=== PATIENT | female | born 1965 | race African-American/Black ===

== ENCOUNTER 2017-06-12 16:49 | Emergency (ER) | payer OTHER ==
[~2017-06-12] VITALS: Ht 165.1 cm; Wt 100.0 kg
[~2017-06-12 16:49] MED LIST: ADVAIR DISK1 INH; ADVAIR DISK2 IN; ATIVAN0.5 MG PO; BACTRIM DS1 TAB PO; BENADRY2 EX; BENADRYL 50MG C50 MG OR; BENADRYL 50MG C50 MG PO; BENAZEPRIL10 MG PO; CEPHALEXIN500 M1 PO; CIPRO500 MG OR; FLEXERIL OR; GLYBURID MCR3 MG PO; GLYNASE6 MG; HUMALOG MIX 75/25; HYDROCHLOROT25 MG PO; HYZAAR1 TA1 OR; LORTAB 5 OR; LOTENSIN HCT1 TAB; MEDDOSEPAK OR; METFORMIN500 M2 OR; METFORMIN500 MG PO; NAPROXEN250 MG PO; NIFEDIPINE30 MG PO; NO MEDS; NORCO1 TA1 PO; PRAVASTATIN20 MG PO; PREDNISONE20 MG PO; PROVENTIL HFA IN; PROVENTIL INH17 GM IN; PROVENTIL0.083 % IN; SIMVASTATIN40 MG; TAGAMET300 MG OR; ULTRAM50 MG OR; ZOFRAN4 MG/TAB PO; ZPAK OR
[2017-06-12 17:56] LABS: HEMATOCRIT 33.1 % (37.0-47.0); HEMOGLOBIN 10.8 g/dl (12.0-16.0); IMMATURE GRANULOCYTES 0.2 % (0.0-1.0); MEAN CELL VOLUME 90.2 fL CALC (80.0-100.0); MEAN CORPUSCULAR HGB 29.4 pG CALC (26.0-32.0); MEAN CORPUSCULAR HGB CONC 32.6 g/L CALC (32.0-36.0); NEUT# 6.71 thou/uL (2.00-7.15); RED BLOOD COUNT 3.67 mill/uL (4.20-5.60); RED CELL DISTRI WIDTH 13.5 % (11.5-15.5)
[2017-06-12 18:05] LABS: ALBUMIN 4.2 g/dL (3.2-5.0); ALKALINE PHOSPHATASE 72 u/l (38-126); ANION GAP 16 (6-22 (CALC)); BILIRUBIN, TOTAL 0.5 mg/dL (0.0-1.4); BUN 15 mg/dL (7-17); BUN/CREATININE RATIO 19 (12-20 (CALC)); CALCIUM 9.4 mg/dL (8.4-10.2); CARBON DIOXIDE 27 mmol/l (22-30); CHLORIDE 102 mmol/l (95-108); CREATININE 0.8 mg/dL (0.5-1.0); GFR > 60 ML/MIN (>=60 (CALC)); GFR FOR AFR.AMER. > 60 ML/MIN (>=60 (CALC)); GLUCOSE 127 mg/dL (65-105); POTASSIUM 3.5 mmol/l (3.5-5.1); SGOT/AST 16 u/l (14-36); SGPT/ALT 23 u/l (9-52); SODIUM 141 mmol/l (137-146); TOTAL PROTEIN 7.8 g/dL (6.3-8.2)
[2017-06-12 18:18] LABS: MYOGLOBIN 51 ng/mL (0 - 62)
[2017-06-12] MEDS ORDERED: MEDDOSEPAK PO (18:29)
[2017-06-12] MEDS ORDERED: ZITHROMAX250 MG PO (18:29)
[2017-06-12 18:43] VITALS: BP 123/69
== END 2017-06-12 18:59 | disposition home or self-care (01) | DRG 203 ==
LOC: ED 16:49
PROVIDERS: Emergency Medicine
DX: J45.909 Unspecified asthma, uncomplicated (principal); R06.02 Shortness of breath; R05 Cough

== ENCOUNTER 2017-07-14 08:12 | Observation (INO) | payer OTHER ==
[~2017-07-14] VITALS: Ht 165.1 cm; Wt 99.5 kg
[~2017-07-14 08:12] MED LIST changes: +MEDDOSEPAK PO; +ZITHROMAX250 MG PO
--- NOTE | 2017-07-14 08:13 | NUR ---
PATIENT BROUGHT DIRECTLY TO ROOM 13 VIA WHEELCHAIR.
[2017-07-14 08:42] LABS: HEMATOCRIT 32.8 % (37.0-47.0); IMMATURE GRANULOCYTES 0.4 % (0.0-1.0); MEAN CELL VOLUME 90.6 fL CALC (80.0-100.0); MEAN CORPUSCULAR HGB 30.4 pG CALC (26.0-32.0); MEAN CORPUSCULAR HGB CONC 33.5 g/L CALC (32.0-36.0); NEUT# 7.75 thou/uL (2.00-7.15); RED BLOOD COUNT 3.62 mill/uL (4.20-5.60); RED CELL DISTRI WIDTH 13.2 % (11.5-15.5)
--- NOTE | 2017-07-14 08:52 | NUR ---
RT AT BEDSIDE FOR BREATHING TREATMENT.
--- NOTE | 2017-07-14 09:00 | NUR ---
PATIENT REPORT CHEST PAIN 9/10 ON PAIN SCALE AFTER BEING MEDICATED WITH SL NITRO 0.4 MG. O2 APPLIED. MD INFORMED, AWAITING NEW ORDERS.
[2017-07-14 09:03] LABS: CHOLESTEROL HDL RATIO 3.1 (<4.4 (CALC))
[2017-07-14 09:04] LABS: ANION GAP 14 (6-22 (CALC)); BUN 12 mg/dL (7-17); BUN/CREATININE RATIO 16 (12-20 (CALC)); CALCIUM 9.7 mg/dL (8.4-10.2); CARBON DIOXIDE 25 mmol/l (22-30); CHLORIDE 104 mmol/l (95-108); CREATININE 0.8 mg/dL (0.5-1.0); GFR > 60 ML/MIN (>=60 (CALC)); GFR FOR AFR.AMER. > 60 ML/MIN (>=60 (CALC)); GLUCOSE 153 mg/dL (65-105); POTASSIUM 3.9 mmol/l (3.5-5.1); SODIUM 139 mmol/l (137-146)
--- NOTE | 2017-07-14 09:16 | NUR ---
PATIENT MEDICATED WITH 4MG OF MORPHINE IVP AND 4 MG OF ZOFRAN IVP FOR 6/10 STABBING PAIN TO THE MIDSTERNAL CHEST AREA. PATIENT DENIES ANY OTHER NEEDS AT THIS TIME. CALL MARTINEZ WITHIN REACH.
--- NOTE | 2017-07-14 09:28 | NUR ---
MD AT BEDSIDE TO DISCUSS RESULTS.
--- NOTE | 2017-07-14 09:29 | NUR ---
SBAR PRINTED TO FLOOR
--- NOTE | 2017-07-14 09:35 | NUR ---
PATIENT REPORTS PAIN LEVEL 6/10. NOS SIGN OF DISTRESS NOTED. CALL LIGHT IN HAND WILL CONTINUE TO MONITOR.
--- NOTE | 2017-07-14 09:38 | NUR ---
ATTEMPT MADE TO CALL REPORT TO SIMONE. WILL CALL BACK FOR REPORT.
--- NOTE | 2017-07-14 10:00 | NUR ---
REPORT GIVEN TO TICO NICHOLS.
--- NOTE | 2017-07-14 10:09 | NUR ---
PT ARRIVED TO ROOM AT 1009 FROM ER WITH CHARU BILLINGSLEY. PT AMBULATED TO BED. PT ORIENTED TO ROOM AND CALL LIGHT SYSTEM. PT HAS NO COMPLAINTS OF PAIN AT THIS TIME. NO SIGNS OF DISTRESS NOTED. SAFETY PRECAUTIONS REINFORCED. CALL LIGHT WITHIN REACH. WILL CONTINUE TO MONITOR.
--- NOTE | 2017-07-14 10:20 | NUR ---
PT TAKEN TO ROOM 272 WITHOUT INCIDENT.
[2017-07-14 11:01] VITALS: BP 129/82
--- NOTE | 2017-07-14 14:09 | NUR ---
PT RESTING IN BED WATCHING TV. NO ACUTE SIGNS OF DISTRESS NOTED. TELE IN PLACE. IV PATENT. WILL CONTINUE TO MONITOR. CALL LIGHT WITHIN REACH
[2017-07-14 15:23] VITALS: BP 123/74
[2017-07-14 19:00] VITALS: BP 110/63
--- NOTE | 2017-07-14 19:29 | NUR ---
REPORT GIVEN TO TICO RUDD. NO ACUTE CHANGES IN PT CONDITION AT THIS TIME. PT RESTING IN BED WATCHING TV. TELE IN PLACE. O2 ON. IV PATENT. CALL LIGHT IN WITHIN REACH.
--- NOTE | 2017-07-14 20:00 | NUR ---
PT IN BED WATCHING TV, RESPIRAITONS EVEN AND UNLABORED ON O2 @2L VIA NC, O2 SAT 96%. DENIES CHEST PAIN, TELE IN PLACE READING SR 84, PT IS MUTE AND DEAF, WE COMMUNICATE BY WRITTING. ENCOURAGED TO USE CALL LIGHT FOR ASSISTANCE, WILL CONTINUE TO MONITOR.
[2017-07-15] VITALS: BP 118/60
--- NOTE | 2017-07-15 00:41 | NUR ---
C/O MIDSTERNAL PAIN 4/10 MEDICATED WITH TYLENOL 650MG PO.
--- NOTE | 2017-07-15 04:00 | NUR ---
OOB TO BATHROOM WITH STEADY GAIT, DENIES CHEST PAIN.
[2017-07-15 04:31] VITALS: BP 106/50
[2017-07-15 06:22] LABS: CHOLESTEROL HDL RATIO 3.4 (<4.4 (CALC))
[2017-07-15 08:10] VITALS: BP 124/69
--- NOTE | 2017-07-15 08:10 | NUR ---
ASSESSMENT IS COMPLETED: IV SITE IS FREE FROM REDNESS OR EDEMA. TELE MONITOR IN PLACE. CONTINUE TO OBSERVE AND MONITOR.
[2017-07-15 11:10] VITALS: BP 122/77
--- NOTE | 2017-07-15 12:00 | NUR ---
PT IS RELAXING IN BED HAS BEEN VISITING WITH FAMILY. IV SITE IS FREE FROM REDNESS OR EDEMA.
[2017-07-15] MEDS ORDERED: IPRATROPIU0.5 MG/3 M NEB (13:36)
[2017-07-15] MEDS ORDERED: MEDDOSEPAK PO (13:36)
[2017-07-15] MEDS ORDERED: NEBULIZER COMPRESSOR IN (13:36)
[2017-07-15] MEDS ORDERED: ASPIRIN CHEWABL81 MG PO (13:36)
--- NOTE | 2017-07-15 15:50 | NUR ---
SPOKE WITH HER DAUGHTER RE: DISCHARGE. PT TOLD FAMILY "SHE IS STILL HURTING" INFORMED FAMILY HER ASTHMA HAS ACTED UP AND WITH COUGHING IT HURTS THE MUSCLE. HAS PUT HER ON MEDICATION TO HELP WITH THIS. VERBALIZED UNDERSTANDING. ALSO SIGNED TO THE PT. RE: CONVERSATION WITH DAUGHTER.
--- NOTE | 2017-07-15 17:09 | NUR ---
PT AMBULATED OFF THE UNIT WITH FAMILY NO DISTRESS NOTED. IV SITE AND TELE DISCONTINUED CATHETER INTACT. CONTINUE TO OSBERVE AND MONITOR.
== END 2017-07-15 17:00 | disposition home or self-care (01) | DRG 313 ==
LOC: ED 08:12 → ED-I 09:23 → ED 09:49 → MS2 09:50
PROVIDERS: Family Medicine; ADMIT Internal Medicine; ATTEND Internal Medicine
DX: R07.89 Other chest pain (principal); J45.901 Unspecified asthma with (acute) exacerbation; I10 Essential (primary) hypertension; E11.9 Type 2 diabetes mellitus without complications; E78.5 Hyperlipidemia, unspecified; H91.90 Unspecified hearing loss, unspecified ear; Z79.84 Long term (current) use of oral hypoglycemic drugs
CPT/HCPCS: G0378

== ENCOUNTER 2017-09-16 09:10 | Emergency (ER) | payer OTHER ==
[~2017-09-16] VITALS: Ht 165.1 cm; Wt 96.0 kg
[~2017-09-16 09:10] MED LIST changes: +ASPIRIN CHEWABL81 MG PO; +IPRATROPIU0.5 MG/3 M NEB; +NEBULIZER COMPRESSOR IN
[2017-09-16] MEDS ORDERED: PRAVASTATIN80 MG PO (09:35)
[2017-09-16] MEDS ORDERED: AMLODIPINE BESYL5 MG PO (09:35)
[2017-09-16] MEDS ORDERED: ADVAIR DISKU IN (09:36)
[2017-09-16] MEDS ORDERED: PROVENTIL108 MCG/AC IN (09:36)
[2017-09-16] MEDS ORDERED: MAXZIDE-2537.5 MG/TA PO (09:37)
[2017-09-16] MEDS ORDERED: LEVOTHYROXIN50 MCG PO (09:37)
[2017-09-16] MEDS ORDERED: LOSARTAN POT100 MG PO (09:38)
[2017-09-16] MEDS ORDERED: ASPIRIN CHEWABL81 MG PO (09:39)
[2017-09-16] MEDS ORDERED: NAPROSYN500 MG PO (09:59)
[2017-09-16] MEDS ORDERED: FLEXERIL PO (09:59)
[2017-09-16 10:01] VITALS: BP 119/73
== END 2017-09-16 10:01 | disposition home or self-care (01) | DRG 556 ==
LOC: ED 09:10
DX: M62.838 Other muscle spasm (principal); M54.2 Cervicalgia

== ENCOUNTER → 2018-03-12 | Day surgery (SDC) | payer OTHER ==
[~2018-03-12] VITALS: Ht 167.6 cm; Wt 98.9 kg
[~2018-03-12] MED LIST changes: +ADVAIR DISKU IN; +AMLODIPINE BESYL5 MG PO; +CYCLOBENZAPRINE10 MG PO; +FLEXERIL PO; +LEVOTHYROXIN50 MCG PO; +LOSARTAN POT100 MG PO; +MAXZIDE-2537.5 MG/TA PO; +MELOXICAM7.5 MG PO; +NAPROSYN500 MG PO; +PRAVASTATIN80 MG PO; +PREDNISONE10 MG PO; +PROVENTIL108 MCG/AC IN
[2018-03-12 09:33] VITALS: BP 139/89
== END | disposition home or self-care (01) ==
LOC: ENDO 02-26 09:40
PROVIDERS: ATTEND Surgery
DX: Z12.11 Encounter for screening for malignant neoplasm of colon (principal); E11.9 Type 2 diabetes mellitus without complications; E78.5 Hyperlipidemia, unspecified; I10 Essential (primary) hypertension; J45.909 Unspecified asthma, uncomplicated

== ENCOUNTER 2018-03-14 13:30 | Emergency (ER) | payer OTHER ==
[~2018-03-14] VITALS: Ht 167.6 cm; Wt 85.0 kg
[~2018-03-14 13:30] MED LIST changes: -PREDNISONE10 MG PO
[2018-03-14] MEDS ORDERED: LEVOTHYROXIN50 MCG PO (14:08)
[2018-03-14 14:16] LABS: HEMATOCRIT 33.6 % (37.0-47.0); HEMOGLOBIN 11.1 g/dl (12.0-16.0); IMMATURE GRANULOCYTES 0.3 % (0.0-5.0); MEAN CELL VOLUME 91.6 fL CALC (80.0-100.0); MEAN CORPUSCULAR HGB 30.2 pG CALC (26.0-32.0); NEUT# 4.24 thou/uL (2.00-7.15); RED BLOOD COUNT 3.67 mill/uL (4.20-5.60)
[2018-03-14 14:33] LABS: ALBUMIN 3.9 g/dL (3.2-5.0); ALKALINE PHOSPHATASE 73 u/l (38-126); ANION GAP 13 (6-22 (CALC)); BILIRUBIN, TOTAL 0.4 mg/dL (0.0-1.4); BUN 16 mg/dL (7-17); BUN/CREATININE RATIO 20 (12-20 (CALC)); CARBON DIOXIDE 28 mmol/l (22-30); CHLORIDE 107 mmol/l (95-108); CREATININE 0.8 mg/dL (0.5-1.0); GFR > 60 ML/MIN (>=60 (CALC)); GFR FOR AFR.AMER. > 60 ML/MIN (>=60 (CALC)); POTASSIUM 3.7 mmol/l (3.5-5.1); SGOT/AST 12 u/l (14-36); SGPT/ALT 24 u/l (9-52); SODIUM 144 mmol/l (137-146); TOTAL PROTEIN 7.7 g/dL (6.3-8.2)
[2018-03-14 14:45] LABS: MYOGLOBIN 39 ng/mL (0 - 62)
[2018-03-14] MEDS ORDERED: PREDNISONE10 MG PO (14:59)
[2018-03-14 15:24] VITALS: BP 148/65
== END 2018-03-14 15:24 | disposition home or self-care (01) ==
LOC: ED 13:30
PROVIDERS: Family Medicine
DX: J45.901 Unspecified asthma with (acute) exacerbation (principal); R06.02 Shortness of breath; R05 Cough; R07.9 Chest pain, unspecified; I10 Essential (primary) hypertension

== ENCOUNTER 2018-05-08 16:17 | Emergency (ER) | payer OTHER ==
[~2018-05-08] VITALS: Ht 167.6 cm; Wt 90.4 kg
[~2018-05-08 16:17] MED LIST changes: +PREDNISONE10 MG PO
[2018-05-08 17:04] LABS: HEMATOCRIT 35.2 % (37.0-47.0); HEMOGLOBIN 11.6 g/dl (12.0-16.0); IMMATURE GRANULOCYTES 0.2 % (0.0-5.0); MEAN CELL VOLUME 89.8 fL CALC (80.0-100.0); MEAN CORPUSCULAR HGB 29.6 pG CALC (26.0-32.0); NEUT# 5.02 thou/uL (2.00-7.15); RED BLOOD COUNT 3.92 mill/uL (4.20-5.60); RED CELL DISTRI WIDTH 12.3 % (11.5-15.5)
[2018-05-08 17:07] LABS: URINE BILIRUBIN - DIPSTICK NEGATIVE (NEGATIVE); URINE BLOOD DIPSTICK NEGATIVE (NEGATIVE); URINE COLOR YELLOW; URINE GLUCOSE - DIPSTICK NEGATIVE (NEGATIVE); URINE KETONE NEGATIVE (NEGATIVE); URINE LEUK ESTERASE NEGATIVE (NEGATIVE); URINE NITRITE - DIPSTICK NEGATIVE (Negative); URINE PROTEIN - DIPSTICK NEGATIVE (NEG-TRACE)
[2018-05-08 17:08] LABS: URINE CLARITY CLEAR
[2018-05-08 17:22] LABS: ALBUMIN 3.9 g/dL (3.2-5.0); ALKALINE PHOSPHATASE 71 u/l (38-126); ANION GAP 15 (6-22 (CALC)); BILIRUBIN, TOTAL 0.4 mg/dL (0.0-1.4); BUN 14 mg/dL (7-17); BUN/CREATININE RATIO 22 (12-20 (CALC)); CARBON DIOXIDE 25 mmol/l (22-30); CHLORIDE 104 mmol/l (95-108); CREATININE 0.6 mg/dL (0.5-1.0); GFR > 60 ML/MIN (>=60 (CALC)); GFR FOR AFR.AMER. > 60 ML/MIN (>=60 (CALC)); LIPASE 67 u/l (23-300); POTASSIUM 4.2 mmol/l (3.5-5.1); SGOT/AST 11 u/l (14-36); SGPT/ALT 17 u/l (9-52); SODIUM 140 mmol/l (137-146); TOTAL PROTEIN 7.3 g/dL (6.3-8.2)
[2018-05-08 18:23] VITALS: BP 159/90
== END 2018-05-08 18:30 | disposition home or self-care (01) ==
LOC: ED 16:17
DX: R10.32 Left lower quadrant pain (principal); I10 Essential (primary) hypertension; E11.9 Type 2 diabetes mellitus without complications; J45.909 Unspecified asthma, uncomplicated
CPT/HCPCS: Q9967

== ENCOUNTER 2018-07-31 17:45 | Emergency (ER) | payer OTHER ==
[~2018-07-31] VITALS: Ht 167.6 cm; Wt 89.1 kg
[2018-07-31] MEDS ORDERED: PROVENTIL108 MCG/AC IN (18:18)
[2018-07-31] MEDS ORDERED: MEDDOSEPAK PO (18:18)
[2018-07-31 18:31] VITALS: BP 186/96
== END 2018-07-31 19:00 | disposition home or self-care (01) ==
LOC: ED 17:45
DX: J45.909 Unspecified asthma, uncomplicated (principal); H91.90 Unspecified hearing loss, unspecified ear; I10 Essential (primary) hypertension; E11.9 Type 2 diabetes mellitus without complications; R06.02 Shortness of breath

== ENCOUNTER 2018-09-29 18:39 | Emergency (ER) | payer OTHER ==
[~2018-09-29] VITALS: Ht 167.6 cm; Wt 86.3 kg
[2018-09-29] MEDS ORDERED: PROVENTIL HFA IN ×2 (19:50→19:51)
[2018-09-29 19:53] VITALS: BP 149/73
== END 2018-09-29 20:05 | disposition home or self-care (01) ==
LOC: ED 18:39
DX: J45.909 Unspecified asthma, uncomplicated (principal); I10 Essential (primary) hypertension; E11.9 Type 2 diabetes mellitus without complications; R06.02 Shortness of breath

== ENCOUNTER 2018-10-25 07:27 | Emergency (ER) | payer OTHER ==
[~2018-10-25] VITALS: Ht 167.6 cm; Wt 85.0 kg
[2018-10-25 08:38] LABS: HEMATOCRIT 34.5 % (37.0-47.0); HEMOGLOBIN 11.3 g/dl (12.0-16.0); IMMATURE GRANULOCYTES 0.2 % (0.0-5.0); MEAN CORPUSCULAR HGB 27.6 pG CALC (26.0-32.0); MEAN CORPUSCULAR HGB CONC 32.8 g/L CALC (32.0-36.0); NEUT# 3.16 thou/uL (2.00-7.15); RED BLOOD COUNT 4.09 mill/uL (4.20-5.60); RED CELL DISTRI WIDTH 12.9 % (11.5-15.5)
[2018-10-25 08:42] LABS: MEAN CELL VOLUME 84.4 fL CALC (80.0-100.0)
[2018-10-25] MEDS ORDERED: METOPROL TAR25 MG PO (08:45)
[2018-10-25] MEDS ORDERED: AMLODIPINE5 MG PO (08:45)
[2018-10-25] MEDS ORDERED: LOSARTAN POTASS50 MG PO (08:46)
[2018-10-25 09:18] LABS: URINE BILIRUBIN - DIPSTICK NEGATIVE (NEGATIVE); URINE BLOOD DIPSTICK NEGATIVE (NEGATIVE); URINE COLOR YELLOW; URINE GLUCOSE - DIPSTICK NEGATIVE (NEGATIVE); URINE KETONE NEGATIVE (NEGATIVE); URINE LEUK ESTERASE NEGATIVE (NEGATIVE); URINE NITRITE - DIPSTICK NEGATIVE (Negative); URINE PROTEIN - DIPSTICK NEGATIVE (NEG-TRACE); URINE UROBILINOGEN - DIPSTICK 0.2 E.U./dL (0.2)
[2018-10-25 09:21] LABS: BARBITURATES NEGATIVE (NEGATIVE); COCAINE NEGATIVE (NEGATIVE); METHADONE NEGATIVE (NEGATIVE); OXCYCODONE NEGATIVE (NEGATIVE); TETRAHYDROCANNABIONOL NEGATIVE (NEGATIVE); TRICYLIC ANTIDEPRESSANTS NEGATIVE (NEGATIVE)
[2018-10-25 09:28] LABS: ALBUMIN 3.8 g/dL (3.2-5.0); ALKALINE PHOSPHATASE 105 u/l (38-126); ANION GAP 14 (6-22 (CALC)); BILIRUBIN, TOTAL 0.9 mg/dL (0.0-1.4); BUN 9 mg/dL (7-17); BUN/CREATININE RATIO 19 (12-20 (CALC)); CARBON DIOXIDE 25 mmol/l (22-30); CHLORIDE 104 mmol/l (95-108); CREATININE 0.5 mg/dL (0.5-1.0); GFR > 60 ML/MIN (>=60 (CALC)); GFR FOR AFR.AMER. > 60 ML/MIN (>=60 (CALC)); POTASSIUM 3.8 mmol/l (3.5-5.1); SGOT/AST 11 u/l (14-36); SODIUM 140 mmol/l (137-146); TOTAL PROTEIN 7.2 g/dL (6.3-8.2)
[2018-10-25] MEDS ORDERED: ULTRAM50 M1 PO (11:04)
[2018-10-25 11:18] VITALS: BP 175/80
== END 2018-10-25 11:19 | disposition home or self-care (01) ==
LOC: ED 07:27
PROVIDERS: Emergency Medicine
DX: E05.90 Thyrotoxicosis, unspecified without thyrotoxic crisis or storm (principal); N81.4 Uterovaginal prolapse, unspecified; I10 Essential (primary) hypertension; E11.9 Type 2 diabetes mellitus without complications; H91.3 Deaf nonspeaking, not elsewhere classified; M54.2 Cervicalgia; R00.2 Palpitations

== ENCOUNTER 2018-12-14 12:37 | Emergency (ER) | payer OTHER ==
[~2018-12-14] VITALS: Ht 167.6 cm; Wt 81.8 kg
[~2018-12-14 12:37] MED LIST changes: +AMLODIPINE5 MG PO; +LOSARTAN POTASS50 MG PO; +METOPROL TAR25 MG PO; +ULTRAM50 M1 PO
[2018-12-14 14:34] VITALS: BP 148/82
== END 2018-12-14 14:34 | disposition home or self-care (01) ==
LOC: ED 12:37
DX: S80.211A Abrasion, right knee, initial encounter (principal); H91.90 Unspecified hearing loss, unspecified ear; W01.0XXA Fall on same level from slipping, tripping and stumbling without subsequent striking against object, initial encounter; Y92.524 Gas station as the place of occurrence of the external cause

== ENCOUNTER 2019-05-06 22:07 | Emergency (ER) | payer OTHER ==
[~2019-05-06] VITALS: Ht 167.6 cm; Wt 85.9 kg
[2019-05-06 22:30] LABS: HEMOGLOBIN 11.3 g/dl (12.0-16.0); IMMATURE GRANULOCYTES 0.4 % (0.0-5.0); MEAN CELL VOLUME 86.3 fL CALC (80.0-100.0); MEAN CORPUSCULAR HGB 28.7 pG CALC (26.0-32.0); MEAN CORPUSCULAR HGB CONC 33.2 g/L CALC (32.0-36.0); NEUT# 4.92 thou/uL (2.00-7.15); RED BLOOD COUNT 3.94 mill/uL (4.20-5.60); RED CELL DISTRI WIDTH 12.4 % (11.5-15.5)
--- NOTE | 2019-05-06 22:34 | NUR ---
BREATHING TREATMENT GIVEN.
[2019-05-06 22:50] LABS: ALKALINE PHOSPHATASE 146 u/l (38-126); ANION GAP 15 (6-22 (CALC)); BUN 9 mg/dL (7-17); BUN/CREATININE RATIO 14 (12-20 (CALC)); CARBON DIOXIDE 28 mmol/l (22-30); CHLORIDE 103 mmol/l (95-108); CREATININE 0.6 mg/dL (0.5-1.0); GFR > 60 ML/MIN (>=60 (CALC)); GFR FOR AFR.AMER. > 60 ML/MIN (>=60 (CALC)); POTASSIUM 3.4 mmol/l (3.5-5.1); SODIUM 142 mmol/l (137-146); TOTAL PROTEIN 8.2 g/dL (6.3-8.2)
[2019-05-06 22:55] LABS: BILIRUBIN, TOTAL 0.4 mg/dL (0.0-1.4); SGOT/AST 25 u/l (14-36)
[2019-05-06 23:01] LABS: MYOGLOBIN 71 ng/mL (0 - 62)
[2019-05-06 23:30] LABS: URINE BILIRUBIN - DIPSTICK NEGATIVE (NEGATIVE); URINE BLOOD DIPSTICK NEGATIVE (NEGATIVE); URINE COLOR YELLOW; URINE GLUCOSE - DIPSTICK NEGATIVE (NEGATIVE); URINE KETONE NEGATIVE (NEGATIVE); URINE LEUK ESTERASE NEGATIVE (NEGATIVE); URINE NITRITE - DIPSTICK NEGATIVE (Negative); URINE PROTEIN - DIPSTICK TRACE mg/dL (NEG-TRACE); URINE SPECIFIC GRAVITY 1.025
[2019-05-06] MEDS ORDERED: ROBITUSSIN AC10 ML PO (23:43)
[2019-05-06] MEDS ORDERED: AMOXICILLIN500 MG PO (23:43)
[2019-05-06 23:53] VITALS: BP 173/77
== END 2019-05-07 00:09 | disposition home or self-care (01) ==
LOC: ED 22:07
PROVIDERS: Emergency Medicine
DX: J02.0 Streptococcal pharyngitis (principal); I10 Essential (primary) hypertension; J44.9 Chronic obstructive pulmonary disease, unspecified; E11.9 Type 2 diabetes mellitus without complications; Z79.84 Long term (current) use of oral hypoglycemic drugs

== ENCOUNTER 2019-05-25 13:27 | Emergency (ER) | payer OTHER ==
[~2019-05-25] VITALS: Ht 167.6 cm; Wt 89.0 kg
[~2019-05-25 13:27] MED LIST changes: +ADVAIR DISK1 IN; -ADVAIR DISKU IN; +AMOXICILLIN500 MG PO; +COZAAR100 MG PO; -LOSARTAN POTASS50 MG PO; +ROBITUSSIN AC10 ML PO
[2019-05-25] MEDS ORDERED: TERBINAFINE250 M1 PO (14:07)
[2019-05-25] MEDS ORDERED: PRAVASTATIN SOD80 MG PO (14:07)
[2019-05-25] MEDS ORDERED: AMLODIPINE BESY10 MG PO (14:08)
[2019-05-25] MEDS ORDERED: FERROUS SULF325 M2 PO (14:08)
[2019-05-25] MEDS ORDERED: METHIMAZOLE10 MG PO (14:09)
[2019-05-25 14:16] LABS: HEMOGLOBIN 11.7 g/dl (12.0-16.0); IMMATURE GRANULOCYTES 0.5 % (0.0-5.0); MEAN CELL VOLUME 84.7 fL CALC (80.0-100.0); MEAN CORPUSCULAR HGB 28.3 pG CALC (26.0-32.0); MEAN CORPUSCULAR HGB CONC 33.4 g/L CALC (32.0-36.0); NEUT# 3.99 thou/uL (2.00-7.15); RED BLOOD COUNT 4.13 mill/uL (4.20-5.60); RED CELL DISTRI WIDTH 12.5 % (11.5-15.5)
[2019-05-25 14:37] LABS: ANION GAP 13 (6-22 (CALC)); BUN 9 mg/dL (7-17); BUN/CREATININE RATIO 16 (12-20 (CALC)); CARBON DIOXIDE 27 mmol/l (22-30); CHLORIDE 103 mmol/l (95-108); CREATININE 0.6 mg/dL (0.5-1.0); GFR > 60 ML/MIN (>=60 (CALC)); GFR FOR AFR.AMER. > 60 ML/MIN (>=60 (CALC)); POTASSIUM 3.3 mmol/l (3.5-5.1); SODIUM 140 mmol/l (137-146)
[2019-05-25] MEDS ORDERED: PROAIR HFA108 MCG/AC PO (14:56)
[2019-05-25] MEDS ORDERED: DOXYCYC MONO100 M2 PO (14:56)
[2019-05-25] MEDS ORDERED: PREDNISONE50 MG PO (14:56)
[2019-05-25 15:06] VITALS: BP 157/78
== END 2019-05-25 15:20 | disposition home or self-care (01) ==
LOC: ED 13:27
PROVIDERS: Family Medicine
DX: J44.9 Chronic obstructive pulmonary disease, unspecified (principal); H91.90 Unspecified hearing loss, unspecified ear; I10 Essential (primary) hypertension; E11.9 Type 2 diabetes mellitus without complications; Z79.84 Long term (current) use of oral hypoglycemic drugs

== ENCOUNTER 2019-09-06 | Emergency (ER) | payer OTHER ==
[~2019-09-06] MED LIST changes: +AMLODIPINE BESY10 MG PO; +DOXYCYC MONO100 M2 PO; +FERROUS SULF325 M2 PO; +METHIMAZOLE10 MG PO; +PRAVASTATIN SOD80 MG PO; +PREDNISONE50 MG PO; +PROAIR HFA108 MCG/AC PO; +TERBINAFINE250 M1 PO
[2019-09-06 12:44] LABS: ALBUMIN 4.2 g/dL (3.2-5.0); ALKALINE PHOSPHATASE 139 u/l (38-126); ANION GAP 13 (6-22 (CALC)); BUN 9 mg/dL (7-17); BUN/CREATININE RATIO 16 (12-20 (CALC)); CARBON DIOXIDE 28 mmol/l (22-30); CHLORIDE 101 mmol/l (95-108); CREATININE 0.6 mg/dL (0.5-1.0); GFR > 60 ML/MIN (>=60 (CALC)); GFR FOR AFR.AMER. > 60 ML/MIN (>=60 (CALC)); POTASSIUM 3.8 mmol/l (3.5-5.1); SODIUM 138 mmol/l (137-146); TOTAL PROTEIN 8.6 g/dL (6.3-8.2)
[2019-09-06 12:45] LABS: HEMATOCRIT 37.9 % (37.0-47.0); HEMOGLOBIN 12.2 g/dl (12.0-16.0); IMMATURE GRANULOCYTES 0.2 % (0.0-5.0); MEAN CELL VOLUME 86.9 fL CALC (80.0-100.0); MEAN CORPUSCULAR HGB CONC 32.2 g/L CALC (32.0-36.0); NEUT# 4.84 thou/uL (2.00-7.15); RED BLOOD COUNT 4.36 mill/uL (4.20-5.60); RED CELL DISTRI WIDTH 12.3 % (11.5-15.5)
[2019-09-06 12:49] LABS: SGOT/AST 58 u/l (14-36)
[2019-09-06 12:54] LABS: MYOGLOBIN 40 ng/mL (0 - 62)
[2019-09-06] MEDS ORDERED: SPIRIVA HANDIH18 MCG PO (15:22)
[2019-09-06] MEDS ORDERED: MONTELUKAST SOD10 MG PO (15:22)
[2019-09-06] MEDS ORDERED: FIORICET PO (15:46)
[2019-09-06 16:11] LABS: TSH, 3RD GENERATION < 0.02 uIU/mL (0.47 - 4.68)
== END 2019-09-06 15:57 | disposition home or self-care (01) ==
PROVIDERS: Emergency Medicine
DX: I10 Essential (primary) hypertension (principal); E11.9 Type 2 diabetes mellitus without complications; T46.5X6A Underdosing of other antihypertensive drugs, initial encounter; Z91.138 Patient's unintentional underdosing of medication regimen for other reason; R51 Headache

== ENCOUNTER 2019-09-09 | Inpatient (IN) | payer OTHER ==
[~2019-09-09] MED LIST changes: +FIORICET PO; +MONTELUKAST SOD10 MG PO; +SPIRIVA HANDIH18 MCG PO
[2019-09-09 20:48] LABS: HEMOGLOBIN 13.8 g/dl (12.0-16.0); IMMATURE GRANULOCYTES 0.3 % (0.0-5.0); MEAN CELL VOLUME 90.3 fL CALC (80.0-100.0); MEAN CORPUSCULAR HGB 28.3 pG CALC (26.0-32.0); MEAN CORPUSCULAR HGB CONC 31.4 g/L CALC (32.0-36.0); NEUT# 9.19 thou/uL (2.00-7.15); RED BLOOD COUNT 4.87 mill/uL (4.20-5.60); RED CELL DISTRI WIDTH 12.5 % (11.5-15.5)
[2019-09-09 21:07] LABS: ALBUMIN 4.7 g/dL (3.2-5.0); ALKALINE PHOSPHATASE 125 u/l (38-126); ANION GAP 23 (6-22 (CALC)); BILIRUBIN, TOTAL 0.6 mg/dL (0.0-1.4); BUN 9 mg/dL (7-17); BUN/CREATININE RATIO 10 (12-20 (CALC)); CARBON DIOXIDE 24 mmol/l (22-30); CHLORIDE 102 mmol/l (95-108); GFR 58 ML/MIN (>=60 (CALC)); GFR FOR AFR.AMER. > 60 ML/MIN (>=60 (CALC)); POTASSIUM 3.8 mmol/l (3.5-5.1); SGOT/AST 23 u/l (14-36); SODIUM 145 mmol/l (137-146); TOTAL PROTEIN 9.3 g/dL (6.3-8.2)
[2019-09-09 21:19] LABS: MYOGLOBIN 37 ng/mL (0 - 62)
[2019-09-09] MEDS ORDERED: METFORMIN850 MG PO (23:19)
[2019-09-09] MEDS ORDERED: METHIMAZOLE10 MG PO (23:20)
[2019-09-09] MEDS ORDERED: LOSARTAN POTASS25 MG PO (23:21)
[2019-09-09] MEDS ORDERED: METOPROL TAR25 M1 PO (23:22)
[2019-09-09] MEDS ORDERED: MONTELUKAST SOD10 MG PO (23:23)
[2019-09-09] MEDS ORDERED: ALBUTEROL SUL0.083 % IN (23:24)
[2019-09-09] MEDS ORDERED: SPIRIVA HANDIH18 MCG IN (23:25)
[2019-09-10] VITALS (33 sets, daily range): BP systolic 111–177; BP diastolic 62–108
[2019-09-10 06:07] LABS: HEMATOCRIT 39.6 % (37.0-47.0); HEMOGLOBIN 12.7 g/dl (12.0-16.0); IMMATURE GRANULOCYTES 0.5 % (0.0-5.0); MEAN CELL VOLUME 88.2 fL CALC (80.0-100.0); MEAN CORPUSCULAR HGB 28.3 pG CALC (26.0-32.0); MEAN CORPUSCULAR HGB CONC 32.1 g/L CALC (32.0-36.0); NEUT# 16.8 thou/uL (2.00-7.15); RED BLOOD COUNT 4.49 mill/uL (4.20-5.60); RED CELL DISTRI WIDTH 12.5 % (11.5-15.5)
[2019-09-10 06:23] LABS: ALBUMIN 3.8 g/dL (3.2-5.0); CREATININE 1.4 mg/dL (0.5-1.0); POTASSIUM 4.3 mmol/l (3.5-5.1); TOTAL PROTEIN 7.8 g/dL (6.3-8.2)
[2019-09-10 06:33] LABS: BILIRUBIN, TOTAL 2.1 mg/dL (0.0-1.4)
[2019-09-10] MEDS ORDERED: LAMISIL250 MG PO (09:35)
[2019-09-10] MEDS ORDERED: ALLERGY NA50 MCG/ACT NAB (09:37)
[2019-09-10] MEDS ORDERED: PRAVASTATIN80 MG PO (09:39)
[2019-09-10] MEDS ORDERED: ZYRTEC10 MG PO (09:39)
[2019-09-10] MEDS ORDERED: FERR SULFATE325 MG PO (09:42)
[2019-09-11] VITALS (23 sets, daily range): BP systolic 101–191; BP diastolic 47–111
[2019-09-11 05:23] LABS: HEMATOCRIT 35.5 % (37.0-47.0); HEMOGLOBIN 11.7 g/dl (12.0-16.0); MEAN CELL VOLUME 87.2 fL CALC (80.0-100.0); MEAN CORPUSCULAR HGB 28.7 pG CALC (26.0-32.0); RED BLOOD COUNT 4.07 mill/uL (4.20-5.60); RED CELL DISTRI WIDTH 12.9 % (11.5-15.5)
[2019-09-11 05:52] LABS: ALBUMIN 3.3 g/dL (3.2-5.0); ALKALINE PHOSPHATASE 116 u/l (38-126); BUN 21 mg/dL (7-17); BUN/CREATININE RATIO 20 (12-20 (CALC)); CARBON DIOXIDE 22 mmol/l (22-30); CHLORIDE 110 mmol/l (95-108); GFR 58 ML/MIN (>=60 (CALC)); GFR FOR AFR.AMER. > 60 ML/MIN (>=60 (CALC)); SGOT/AST 66 u/l (14-36); SODIUM 143 mmol/l (137-146)
[2019-09-11 05:55] LABS: ANION GAP 14 (6-22 (CALC)); BILIRUBIN, TOTAL 0.9 mg/dL (0.0-1.4); POTASSIUM 3.3 mmol/l (3.5-5.1)
[2019-09-12] VITALS (19 sets, daily range): BP systolic 119–214; BP diastolic 63–103
[2019-09-12 05:25] LABS: HEMATOCRIT 32.8 % (37.0-47.0); HEMOGLOBIN 10.4 g/dl (12.0-16.0); MEAN CELL VOLUME 89.4 fL CALC (80.0-100.0); MEAN CORPUSCULAR HGB 28.3 pG CALC (26.0-32.0); MEAN CORPUSCULAR HGB CONC 31.7 g/L CALC (32.0-36.0); RED BLOOD COUNT 3.67 mill/uL (4.20-5.60); RED CELL DISTRI WIDTH 13.5 % (11.5-15.5)
[2019-09-12 05:44] LABS: ANION GAP 11 (6-22 (CALC)); BUN 26 mg/dL (7-17); BUN/CREATININE RATIO 25 (12-20 (CALC)); CARBON DIOXIDE 23 mmol/l (22-30); CHLORIDE 115 mmol/l (95-108); CREATININE 1.1 mg/dL (0.5-1.0); GFR 52 ML/MIN (>=60 (CALC)); GFR FOR AFR.AMER. > 60 ML/MIN (>=60 (CALC)); POTASSIUM 3.5 mmol/l (3.5-5.1); SODIUM 144 mmol/l (137-146)
== END 2019-09-12 14:17 | DRG 208 ==
PROVIDERS: Emergency Medicine; ADMIT Internal Medicine
PROC: 5A09357 Assistance with Respiratory Ventilation, Less than 24 Consecutive Hours, Continuous Positive Airway Pressure (ICD-10-PCS; principal; 2019-09-09)
PROC: 0BH17EZ Insertion of Endotracheal Airway into Trachea, Via Natural or Artificial Opening (ICD-10-PCS; 2019-09-09)
PROC: 5A1945Z Respiratory Ventilation, 24-96 Consecutive Hours (ICD-10-PCS; 2019-09-09)
PROC: 0T9B70Z Drainage of Bladder with Drainage Device, Via Natural or Artificial Opening (ICD-10-PCS; 2019-09-10)
DX: J96.02 Acute respiratory failure with hypercapnia (principal); J18.9 Pneumonia, unspecified organism; J45.902 Unspecified asthma with status asthmaticus; I24.8 Other forms of acute ischemic heart disease; I16.1 Hypertensive emergency; J96.01 Acute respiratory failure with hypoxia; I10 Essential (primary) hypertension; E11.9 Type 2 diabetes mellitus without complications; H91.93 Unspecified hearing loss, bilateral; Z79.84 Long term (current) use of oral hypoglycemic drugs
CPT/HCPCS: J1650; S0164

== ENCOUNTER 2021-05-23 10:19 | Emergency (ER) | payer MEDICARE, OTHER ==
[~2021-05-23] VITALS: Ht 167.6 cm; Wt 90.0 kg
[~2021-05-23 10:19] MED LIST changes: +ALBUTEROL SUL0.083 % IN; +ALLERGY NA50 MCG/ACT NAB; +FERR SULFATE325 MG PO; +LAMISIL250 MG PO; +LOSARTAN POTASS25 MG PO; +METFORMIN850 MG PO; +METOPROL TAR25 M1 PO; +SPIRIVA HANDIH18 MCG IN; +ZYRTEC10 MG PO
[2021-05-23] MEDS ORDERED: OMNI-PAC300 MG PO (12:00)
[2021-05-23] MEDS ORDERED: BACTRIM DS1 TAB PO (12:00)
[2021-05-23 12:32] VITALS: BP 160/85
== END 2021-05-23 12:32 | disposition home or self-care (01) ==
LOC: ED 10:19
PROC: 0H9FXZZ Drainage of Right Hand Skin, External Approach (ICD-10-PCS; principal; 2021-05-23)
DX: L03.011 Cellulitis of right finger (principal); E11.9 Type 2 diabetes mellitus without complications; I10 Essential (primary) hypertension; H91.90 Unspecified hearing loss, unspecified ear; J45.909 Unspecified asthma, uncomplicated; Z79.84 Long term (current) use of oral hypoglycemic drugs

== ENCOUNTER 2022-03-21 09:41 | Emergency (ER) | payer MEDICARE, OTHER ==
[~2022-03-21] VITALS: Ht 167.6 cm; Wt 98.7 kg
[2022-03-21] VITALS (7 sets, daily range): BP systolic 133–153; BP diastolic 76–87
[~2022-03-21 09:41] MED LIST changes: +OMNI-PAC300 MG PO
[2022-03-21 10:14] LABS: HEMATOCRIT 38.5 % (37.0-47.0); IMMATURE GRANULOCYTES 0.2 % (0.0-5.0); MEAN CELL VOLUME 92.5 fL CALC (80.0-100.0); MEAN CORPUSCULAR HGB 29.8 pG CALC (26.0-32.0); MEAN CORPUSCULAR HGB CONC 32.2 g/dL CAL (32.0-36.0); NEUT# 1.55 thou/uL (2.00-7.15); RED BLOOD COUNT 4.16 mill/uL (4.20-5.60); RED CELL DISTRI WIDTH 12.4 % (11.5-15.5)
[2022-03-21 10:15] LABS: HEMOGLOBIN 12.4 g/dl (12.0-16.0)
[2022-03-21 10:44] LABS: ALKALINE PHOSPHATASE 101 u/l (38-126); BILIRUBIN, TOTAL 0.7 mg/dL (0.0-1.4); BUN 11 mg/dL (7-17); BUN/CREATININE RATIO 12 (12-20 (CALC)); CARBON DIOXIDE 27 mmol/l (22-30); CREATININE 0.9 mg/dL (0.5-1.0); GFR FOR AFR.AMER. > 60 ML/MIN (>=60 (CALC)); GFR OTHER RACES > 60 ML/MIN (>=60 (CALC)); POTASSIUM 4.1 mmol/l (3.5-5.1); SGOT/AST 27 u/l (14-36); SODIUM 137 mmol/l (137-146); TOTAL PROTEIN 8.2 g/dL (6.3-8.2)
[2022-03-21 10:49] LABS: ANION GAP 13 (6-22 (CALC)); CHLORIDE 101 mmol/l (95-108)
== END 2022-03-21 11:30 | disposition home or self-care (01) ==
LOC: ED 09:41
PROVIDERS: Family Medicine
DX: U07.1 COVID-19 (principal); R06.02 Shortness of breath; R05.9 Cough, unspecified; I10 Essential (primary) hypertension; E11.9 Type 2 diabetes mellitus without complications; J45.909 Unspecified asthma, uncomplicated; H91.90 Unspecified hearing loss, unspecified ear

== ENCOUNTER 2022-07-21 09:18 | Emergency (ER) | payer MEDICARE, OTHER ==
[~2022-07-21] VITALS: Ht 167.6 cm; Wt 96.0 kg
[2022-07-21 09:27] VITALS: BP 173/80
[2022-07-21 09:31] VITALS: BP 151/87
[2022-07-21 09:46] VITALS: BP 157/95
[2022-07-21 09:55] LABS: HEMATOCRIT 34.7 % (37.0-47.0); HEMOGLOBIN 11.5 g/dl (12.0-16.0); IMMATURE GRANULOCYTES 0.1 % (0.0-5.0); MEAN CELL VOLUME 91.3 fL CALC (80.0-100.0); MEAN CORPUSCULAR HGB 30.3 pG CALC (26.0-32.0); MEAN CORPUSCULAR HGB CONC 33.1 g/dL CAL (32.0-36.0); NEUT# 4.46 thou/uL (2.00-7.15); RED BLOOD COUNT 3.8 mill/uL (4.20-5.60); RED CELL DISTRI WIDTH 13.1 % (11.5-15.5)
[2022-07-21 10:25] LABS: ALBUMIN 4.2 g/dL (3.2-5.0); ALKALINE PHOSPHATASE 101 u/l (38-126); ANION GAP 14 (6-22 (CALC)); BUN 16 mg/dL (7-17); BUN/CREATININE RATIO 19 (12-20 (CALC)); CARBON DIOXIDE 30 mmol/l (22-30); CHLORIDE 102 mmol/l (95-108); CREATININE 0.8 mg/dL (0.5-1.0); GFR FOR AFR.AMER. > 60 ML/MIN (>=60 (CALC)); GFR OTHER RACES > 60 ML/MIN (>=60 (CALC)); LIPASE 59 u/l (23-300); MAGNESIUM 1.6 mg/dL (1.6-2.3); POTASSIUM 3.7 mmol/l (3.5-5.1); SGOT/AST 24 u/l (14-36); SODIUM 143 mmol/l (137-146); TOTAL PROTEIN 8.1 g/dL (6.3-8.2)
[2022-07-21 10:26] LABS: BILIRUBIN, TOTAL 0.4 mg/dL (0.0-1.4)
[2022-07-21 10:27] VITALS: BP 178/88
[2022-07-21 10:31] LABS: CPK 130 u/l (30-165)
[2022-07-21 10:37] LABS: PROTHROMBIN TIME 10.1 SECONDS (9.0-12.5)
[2022-07-21 10:58] VITALS: BP 155/78
[2022-07-21] MEDS ORDERED: ALBUTEROL SUL0.083 % IN (14:21)
[2022-07-21] MEDS ORDERED: PREDNISONE20 MG PO (14:21)
[2022-07-21 14:34] VITALS: BP 155/78
== END 2022-07-21 14:54 | disposition home or self-care (01) ==
LOC: ED 09:18
PROVIDERS: Internal Medicine
DX: I11.0 Hypertensive heart disease with heart failure (principal); I50.9 Heart failure, unspecified; E11.9 Type 2 diabetes mellitus without complications; J45.909 Unspecified asthma, uncomplicated; H91.90 Unspecified hearing loss, unspecified ear; Z79.84 Long term (current) use of oral hypoglycemic drugs

== ENCOUNTER 2022-07-24 15:33 | Emergency (ER) | payer MEDICARE, OTHER ==
[~2022-07-24] VITALS: Ht 167.6 cm; Wt 91.3 kg
[2022-07-24 15:46] VITALS: BP 149/73
[2022-07-24 16:10] VITALS: BP 149/73
== END 2022-07-24 16:11 | disposition home or self-care (01) ==
LOC: ED 15:33
DX: J44.9 Chronic obstructive pulmonary disease, unspecified (principal); I10 Essential (primary) hypertension; E11.9 Type 2 diabetes mellitus without complications; H91.90 Unspecified hearing loss, unspecified ear; Z79.84 Long term (current) use of oral hypoglycemic drugs